=== PATIENT | male | born 1980 | race Caucasian/White ===

== ENCOUNTER 2024-09-02 03:37 | Emergency (ER) | payer MEDICAID ==
[~2024-09-02] VITALS: Ht 167.6 cm; Wt 70.0 kg
[2024-09-02 03:38] VITALS: BP 120/66; PULSE 75; RESP 20; O2SAT 100
--- NOTE | 2024-09-02 03:42 | Physician Documentation ---
History of Present Illness ~ Stated Complaint: ALOC Time Seen by MD: 03:40 Primary Medical Doctor: none Exam Limitations: clinical condition, intoxication HPI 44-year-old male who is brought in by EMS with altered mental status and bizarre behavior. EMS reports that he came from the [place], with bizarre behavior. He did not really answer questions. They were unable to get vital signs. He was intermittently agitated and did swing his arms at the medic. Here in the ED, the patient is very difficult to evaluate. He does not answer most of my questions, and makes bizarre statements. He appears to be responding to internal stimuli or is intoxicated. Medication Reconciliation Allergies: Coded Allergies: codeine (Unverified Allergy, Unknown, 02/19/17) Scheduled Buspirone HCl (Buspirone HCl), 1 TAB PO Q12H, (Reported) Cyclobenzaprine HCl (Cyclobenzaprine HCl), 1 TAB PO HS, (Reported) Gabapentin (Neurontin), 900 MG PO BID, (Reported) Sertraline HCl (Sertraline HCl), 1 CAP PO DAILY, (Reported) Scheduled PRN Clonazepam (Klonopin), 1.5 MG PO Q12H PRN PRN for anxiety, (Reported) Past Medical History Past Medical History: No Pertinent History Past Surgical History: no surgical history Drug Use: none Lives with: Family Lives In: Home Review of Systems Unable to obtain complete ROS: altered mental status Physical Exam Physical Exam General: This is a thin young male, appears to have some psychomotor agitation and is making bizarre statements HEENT: Atraumatic, oropharynx appears dry Heart: Tachycardic, appears regular Lungs: normal work of breathing, normal phonation Extremities: Warm and well-perfused, moves all extremities, no obvious traumatic injuries Neuro: Alert, able to answer some questions, moves all extremities Psychiatric: Bizarre behavior, has psychomotor agitation, appears to be responding to internal stimuli, difficult to redirect Progress Results/Orders Results/Orders Orders - VINCE SANDOVAL MD Close Observation Level (09/02/24 06:53) Completed Orders - VINCE SANDOVAL MD Nicotine 14mg Patch-24hr (Habitrol Patch (09/02/24 06:25) Medications Received in ER Medications (Trade) Dose Ordered Sig/Moose Route PRN Reason Start Time Stop Time Status Last Admin Dose Admin (Zyprexa tablet) 10 mg ONCE PO 09/02/24 03:45 09/02/24 08:37 DC 09/02/24 03:49 10 MG (Benadryl capsule) 50 mg ONCE ONCE PO 09/02/24 03:45 09/02/24 03:46 DC 09/02/24 03:49 50 MG (Ativan tablet) 2 mg ONCE ONCE PO 09/02/24 03:45 09/02/24 03:46 DC 09/02/24 03:49 2 MG (Habitrol patch) 1 patch ONCE ONCE TD 09/02/24 06:25 09/02/24 06:26 DC 09/02/24 06:32 1 PATCH Vital Signs 09/02/24 09/02/24 09/02/24 03:38 04:43 07:06 Temp 98.2 98.2 Pulse 75 Resp 20 B/P (MAP) 120/66 Pulse Ox 100 Laboratory Tests Test 09/02/24 03:40 09/02/24 04:04 09/02/24 04:20 Glucometer 203 H SARS-CoV-2 Antigen (Rapid) Negative White Blood Count 10.9 Red Blood Count 4.93 Hemoglobin 14.7 Hematocrit 43.4 Mean Corpuscular Volume 87.9 Mean Corpuscular Hemoglobin 29.7 Mean Corpuscular Hemoglobin Concent 33.8 Red Cell Distribution Width 13.5 Platelet Count 301 Mean Platelet Volume 6.7 L Neutrophils (%) (Auto) 82.4 H Lymphocytes (%) (Auto) 8.6 L Monocytes (%) (Auto) 7.7 Eosinophils (%) (Auto) 1.0 Basophils (%) (Auto) 0.3 Neutrophils # (Auto) 9.0 H Lymphocytes # (Auto) 0.9 L Monocytes # (Auto) 0.8 Eosinophils # (Auto) 0.1 Basophils # (Auto) 0.0 CBC Comment Sodium Level 138 Potassium Level 4.4 Chloride Level 99 Carbon Dioxide Level 29.8 Anion Gap 9 Blood Urea Nitrogen 14 Creatinine 1.40 H Estimated GFR/1.73 m2 55 BUN/Creatinine Ratio 10.0 Glucose Level 143 H Calcium Level 9.6 Albumin 4.1 Thyroid Stimulating Hormone (TSH) 2.93 Chemistry Comments Ethyl Alcohol Level < 10 Medical Decision Making Differential Dx:Considerations: Include: dehydration, encephalopathy, hypoglycemia, drug overdose, ETOH intoxication, medication toxicity Additional Information The patient presents with bizarre behavior. Per his history and exam, this seems most likely either substance abuse or psychiatric illness. He has no evidence of trauma. He has no fever or other evidence of infection. I did offer him medications for his agitation and symptoms but he refused. Mental scr eening labs were obtained which were grossly unremarkable. Urine drug screen is pending. The patient was signed out at shift change, pending urinalysis, and mental health evaluation. I took over care of this patient from previous ED physician. The patient continued to be uncooperative and refused to provide a urine sample for medical clearance. He repeatedly tried to get up and leave. The patient finally became very agitated and verbally abusive. He started threatening to punch staff and stormed out of the emergency department before he could be stopped. Departure Disposition: 07 LEFT AWOL/ELOPED Impression: Primary Impression: Bizarre behavior Additional Impressions: Violent behavior Agitation Referrals: NO PRIMARY CARE PROVIDER (PCP) Signature Scribe Signature: na Attestation: SHERYL Gramajo MD September 02, 2024 03:42 VINCE SANDOVAL MD September 02, 2024 08:07
[2024-09-02] MEDS: olanzapine 10mg tablet PO SCH (03:49)
[2024-09-02] MEDS: LORazepam 1 MG tablet PO ONE (03:49)
[2024-09-02] MEDS: diphenhydrAMINE 25mg capsule PO ONE (03:49)
[2024-09-02 04:34] LABS: BASOPHILS % (AUTO) 0.3 % (0-1); EOSINOPHILS # (AUTO) 0.1 X10'3 (0-0.9); HEMATOCRIT 43.4 % (42.0-52.0); HEMOGLOBIN 14.7 g/dl (14.0-17.9); LYMPHOCYTES # (AUTO) 0.9 X10'3 (1.1-4.8); LYMPHOCYTES % (AUTO) 8.6 % (21-51); MEAN CORPUSCULAR HEMOGLOBIN 29.7 PG (27.0-31.0); MEAN CORPUSCULAR HGB CONC 33.8 g/dL (33.0-36.5); MEAN CORPUSCULAR VOLUME 87.9 FL (78-98); MEAN PLATELET VOLUME 6.7 FL (7.4-10.4); MONOCYTES # (AUTO) 0.8 X10'3 (0-0.9); MONOCYTES % (AUTO) 7.7 % (2-12); NEUTROPHILS % (AUTO) 82.4 % (42-75); PLATELET COUNT 301 X10'3 (140-440); RED BLOOD COUNT 4.93 X10'6 (4.70-6.10); RED CELL DISTRIBUTION WIDTH 13.5 % (11.5-14.5); WHITE BLOOD COUNT 10.9 X10'3 (4.5-11.0)
[2024-09-02 04:43] VITALS: TEMP 98.2
[2024-09-02 04:56] LABS: ALBUMIN 4.1 G/DL (3.4-5.0); ANION GAP 9 (8-16); BLOOD UREA NITROGEN 14 MG/DL (7-18); CALCIUM 9.6 MG/DL (8.5-10.1); CHLORIDE 99 MMOL/L (99-107); GLUCOSE 143 MG/DL (70-104); POTASSIUM 4.4 MMOL/L (3.5-5.1); SODIUM 138 MMOL/L (135-145); THYROID STIMULATING HORMONE 2.93 ulU/ml (0.34-4.50); TOTAL CARBON DIOXIDE 29.8 MMOL/L (24-32); eCRCL 60 ML/MIN; eGFR 55 ML/MIN
[2024-09-02 04:58] LABS: ETHANOL < 10 MG/DL (<10)
[2024-09-02] MEDS ORDERED: SERT200C PO (05:59)
[2024-09-02] MEDS ORDERED: GABA800T PO (05:59)
[2024-09-02] MEDS ORDERED: CYCL-394 PO (05:59)
[2024-09-02] MEDS ORDERED: BUSP15TA3 PO (05:59)
[2024-09-02] MEDS ORDERED: CLON1TAB2 PO (06:02)
[2024-09-02] MEDS: nicotine 14mg patch - 24hr TD ONE (06:32)
== END 2024-09-02 08:10 | disposition left against medical advice (07) ==
LOC: ER 03:38
DX: R46.2 Strange and inexplicable behavior (principal); R45.6 Violent behavior; R45.1 Restlessness and agitation; Z88.5 Allergy status to narcotic agent; Z20.822 Contact with and (suspected) exposure to COVID-19
CPT/HCPCS: 36415; 80048; 80320; 82948; 84443; 85025; 87811; 99284; Q0163

== ENCOUNTER 2024-09-05 06:36 | Emergency (ER) | payer MEDICAID ==
[~2024-09-05] VITALS: Ht 170.2 cm; Wt 69.1 kg
[~2024-09-05 06:36] MED LIST: BUSP15TA3 PO; CLON1TAB2 PO; CYCL-394 PO; GABA800T PO; SERT200C PO
[2024-09-05 06:41] VITALS: BP 116/64; PULSE 74; RESP 16; TEMP 97.3; O2SAT 100
--- NOTE | 2024-09-05 07:10 | Physician Documentation ---
History of Present Illness ~ Chief Complaint: Medical Clearance Stated Complaint: MED REQUEST Time Seen by MD: 07:05 Primary Medical Doctor: none HPI Patient presenting for alcohol withdrawal. He has purposely detoxing hoping to quit drinking. His last drink was several hours ago. He has appointment today at 1:00 a.m. for detox. He reports feeling shaky. No history of seizures or hallucinations Tetanus within 5 years?: No Medication Reconciliation Allergies: Coded Allergies: codeine (Unverified Allergy, Unknown, 02/19/17) Scheduled Buspirone HCl (Buspirone HCl), 1 TAB PO Q12H, (Reported) Cyclobenzaprine HCl (Cyclobenzaprine HCl), 1 TAB PO HS, (Reported) Gabapentin (Neurontin), 900 MG PO BID, (Reported) Sertraline HCl (Sertraline HCl), 1 CAP PO DAILY, (Reported) Scheduled PRN Clonazepam (Klonopin), 1.5 MG PO Q12H PRN PRN for anxiety, (Reported) Past Medical History Past Medical History: No Pertinent History Past Surgical History: no surgical history Drug Use: none Lives with: Family Lives In: Home Review of Systems Constitutional: Denies: fever Respiratory: Denies: cough, shortness of breath Cardiovascular: Denies: chest pain Gastrointestinal: Denies: abdominal pain Physical Exam Vital Signs: RN Vital Signs have been reviewed: Yes, Temperature: 97.3, Source: Temporal, Heart Rate: 74, Respiratory Rate: 16, BP: 116/64, Pulse Oximetry: 100, Weight: 69.100 Oxygen Flow Rate: 0 Physical Exam Well-appearing well-kempt no distress resting comfortably in bed Awake alert oriented Normal gait Breathing unlabored Progress Results/Orders Results/Orders Vital Signs 09/05/24 06:41 Temp 97.3 Pulse 74 Resp 16 B/P (MAP) 116/64 Pulse Ox 100 O2 Flow Rate 0 Medical Decision Making Differential Dx:Considerations: Include: Intoxication-Alcohol, Intoxication- Other drug, Personality disorder, Substance abuse disorder Departure Disposition: 01 HOME / SELF CARE / HOMELESS Impression: Primary Impression: Alcohol use disorder Additional Instructions: Please go to your detox appointment. Return if you have any hallucinations or seizure Referrals: NO PRIMARY CARE PROVIDER (PCP) Signature Scribe Signature: na Attestation: SUE Garza MD September 05, 2024 07:10
[2024-09-05] MEDS: chlordiazePOXIDE 25mg capsule PO ONE (07:21)
== END 2024-09-05 07:24 | disposition home or self-care (01) ==
LOC: ER 06:36
DX: F10.239 Alcohol dependence with withdrawal, unspecified (principal); Z88.5 Allergy status to narcotic agent; Z79.899 Other long term (current) drug therapy; Y90.9 Presence of alcohol in blood, level not specified
CPT/HCPCS: 99283

== ENCOUNTER 2024-12-13 04:44 | Emergency (ER) | payer MEDICAID ==
[~2024-12-13] VITALS: Ht 172.7 cm; Wt 52.5 kg
[2024-12-13 07:33] VITALS: BP 102/67; PULSE 50; RESP 18; O2SAT 100
--- NOTE | 2024-12-13 08:11 | Physician Documentation ---
History of Present Illness General Chief Complaint: Medical Clearance Stated Complaint: EVAL Time Seen by MD: 08:03 OK to notify your PCP?: No Primary Medical Doctor: NONE Source: patient, RN notes reviewed Mode of Arrival: POV Exam Limitations: no limitations History of Present Illness Initial Comments 44 year old male, with history of fentanyl, methamphetamine, and cocaine use, presents with requests for medical clearance for [facility]. He plans to visit their facility around 1000 today. He is also requesting prescriptions for nicotine patches and Suboxone, to bridge him. He does not have any medical complaints at this time. He denies any chest pain or shortness of breath. Medication Reconciliation Allergies: Coded Allergies: codeine (Unverified Allergy, Unknown, 12/13/24) Scheduled Buspirone HCl (Buspirone HCl), 1 TAB PO Q12H, (Reported) Cyclobenzaprine HCl (Cyclobenzaprine HCl), 1 TAB PO HS, (Reported) Gabapentin (Neurontin), 900 MG PO BID, (Reported) Sertraline HCl (Sertraline HCl), 1 CAP PO DAILY, (Reported) Scheduled PRN Clonazepam (Klonopin), 1.5 MG PO Q12H PRN PRN for anxiety, (Reported) Past Medical History Past Medical History: No Pertinent History Past Surgical History: no surgical history Drug Use: methamphetamine, cocaine, heroin Lives with: Family Lives In: Home Review of Systems All Other Systems at this time: Reviewed and Negative ROS As stated above in the HPI, otherwise all systems are reviewed and negative. Physical Exam Physical Exam Vital Signs: RN Vital Signs have been reviewed: Yes, Temperature: 96.6, Source: Temporal, Heart Rate: 50, Respiratory Rate: 18, BP: 102/67, Pulse Oximetry: 100, Weight: 52.520 Oxygen Flow Rate: 0 Pulse Oximetry Reflects: adequate oxygenation Physical Exam VITALS: Reviewed and as above. GENERAL: Alert, no apparent distress. HEENT: Normocephalic, atraumatic, PERRL, EOMI, dry mucosa RESPIRATORY: Lungs clear, normal breath sounds, no respiratory distress. CHEST: No accessory muscle use, no retractions CV: Regular rate, rhythm, no edema, no murmur, No: JVD MUSCULOSKELETAL No deformities, no edema SKIN: Warm and dry, no rash NEURO: Oriented x4, No motor or sensory deficit PSYCH: Normal mood and affect, no agitation Progress Results/Orders Results/Orders Vital Signs 12/13/24 12/13/24 04:48 07:33 Temp 96.6 96.6 Pulse 98 50 Resp 15 18 B/P (MAP) 156/96 102/67 (79) Pulse Ox 98 100 O2 Flow Rate 0 Medical Decision Making Additional info obtained from: old records Departure Time of Disposition: 08:14 Disposition: 01 HOME / SELF CARE / HOMELESS Impression: Primary Impression: General medical exam Additional Impression: Medication refill Condition: Stable Discharge Instructions: Medical Screening Exam Additional Instructions: Patient has a medically clear for detox/rehab any facility, including [facility]. Take medications as prescribed. Return to the ER for any other concerns. Education Educated: Patient Educated regarding: diagnosis, treatment, need for follow up Signature Scribe Signature: Scribed for Karol Lott MD by Cesario Booker . 12/13/24 08:14 KAROL LOTT MD Dec 13, 2024 08:11 CESARIO SMITH Dec 13, 2024 08:15
[2024-12-13] MEDS ORDERED: NICO-687 TOP (08:14)
[2024-12-13] MEDS ORDERED: BUPR1FIL3 SL (08:14)
[2024-12-13] MEDS: buprenorphine/naloxone 8MG-2MG SUBlingual film SL STA (08:29)
[2024-12-13] MEDS: nicotine 21mg patch - 24 hr TD ONE (08:31)
[2024-12-13 08:32] VITALS: TEMP 96.6
== END 2024-12-13 08:47 | disposition home or self-care (01) ==
LOC: ER 04:45
DX: Z00.00 Encounter for general adult medical examination without abnormal findings (principal); Z76.0 Encounter for issue of repeat prescription; Z88.5 Allergy status to narcotic agent; Z79.899 Other long term (current) drug therapy; F15.90 Other stimulant use, unspecified, uncomplicated; F14.90 Cocaine use, unspecified, uncomplicated; F11.90 Opioid use, unspecified, uncomplicated
CPT/HCPCS: 99283

== ENCOUNTER 2024-12-15 12:03 | Emergency (ER) | payer MEDICAID ==
[~2024-12-15] VITALS: Ht 167.6 cm; Wt 96.2 kg
[~2024-12-15 12:03] MED LIST changes: +BUPR1FIL3 SL; +NICO-687 TOP
[2024-12-15 12:09] VITALS: BP 123/74; PULSE 65; RESP 18; O2SAT 99
--- NOTE | 2024-12-15 12:16 | Physician Documentation ---
HPI ~ General Chief Complaint: Medication Request Stated Complaint: MED REQUEST Time Seen by MD: 12:12 Primary Medical Doctor: NONE History of Present Illness HPI Comments Patient presents to the ED requesting bridging medication for ongoing opioid recovery. States he is unable to fruit or nut picker his Suboxone due to his pharmacy being closed. He is requesting a single dose while in the ED reports taking 8 mg twice daily Without Medications Since: Dec 15, 2024 Medication Reconciliation Allergies: Coded Allergies: codeine (Unverified Allergy, Unknown, 12/13/24) Scheduled Buprenorphine Hcl/Naloxone Hcl (Suboxone 8 Mg-2 Mg Sl Film), 1 STRIP SL DAILY Buspirone HCl (Buspirone HCl), 1 TAB PO Q12H, (Reported) Cyclobenzaprine HCl (Cyclobenzaprine HCl), 1 TAB PO HS, (Reported) Gabapentin (Neurontin), 900 MG PO BID, (Reported) Nicotine 21 MG Patch* (Habitrol 21 MG Patch*), 1 PATCH TOP DAILY Sertraline HCl (Sertraline HCl), 1 CAP PO DAILY, (Reported) Scheduled PRN Clonazepam (Klonopin), 1.5 MG PO Q12H PRN PRN for anxiety, (Reported) Past Medical History Past Medical History: No Pertinent History Past Surgical History: no surgical history Drug Use: methamphetamine, cocaine, heroin Lives with: Family Lives In: Home Review of Systems All Other Systems at this time: Reviewed and Negative ROS As stated above in the HPI, otherwise all systems are reviewed and negative. Physical Exam Physical Exam Vital Signs: Temperature: 97.9, Source: Temporal, Heart Rate: 65, Respiratory Rate: 18, BP: 123/74, Pulse Oximetry: 99, Weight: 96.250 Oxygen Flow Rate: 0 Physical Exam General: Alert, no apparent distress. Respiratory: Lungs clear, no respiratory distress. Chest: No accessory muscle use. Cardiovascular: Regular rate and rhythm, no murmurs. Neurologic: Oriented x4. Psychiatric: Normal mood and affect. Skin: Normal color, warm and dry. No edema, no ecchymosis. Progress Results/Orders Results/Orders Completed Orders - CARLIN VIERA NP Buprenorphine/Naloxone Sl Film (Suboxone (12/15/24 12:15) Medications Received in ER Medications (Trade) Dose Ordered Sig/Moose Route PRN Reason Start Time Stop Time Status Last Admin Dose Admin (Suboxone 8MG-2MG SL film) 2 film NOW ONCE SL 12/15/24 12:15 12/15/24 12:16 DC 12/15/24 12:22 2 FILM Vital Signs 12/15/24 12/15/24 12:09 12:23 Temp 97.9 97.9 Pulse 65 Resp 18 B/P (MAP) 123/74 Pulse Ox 99 O2 Flow Rate 0 Medical Decision Making Findings Patient provided a single dose of Suboxone while in the ED. Differential Dx:Considerations: Include: Adverse circumstances, Economic, Psychosocial, Medical services unavail., Medication refill, Medication non- compliance, Other Departure Disposition: HOME / SELF CARE / HOMELESS Impression: Primary Impression: Pain Additional Impression: Medication refill Condition: Stable Discharge Instructions: Medicine Refill at the Emergency Department Referrals: NO PRIMARY CARE PROVIDER (PCP) Signature Scribe Signature: f Attestation: Scribed for Carlin Viera Director Fraud by Carlin Vergara NP . 12/15/24 18:02 CARLIN VIERA MANAGER REQUIREMENTS Dec 15, 2024 12:15
[2024-12-15] MEDS: buprenorphine/naloxone 8MG-2MG SUBlingual film SL ONE (12:22)
[2024-12-15 12:23] VITALS: TEMP 97.9
== END 2024-12-15 12:24 | disposition home or self-care (01) ==
LOC: ER 12:03
DX: R52 Pain, unspecified (principal); F11.90 Opioid use, unspecified, uncomplicated; F14.90 Cocaine use, unspecified, uncomplicated; F15.90 Other stimulant use, unspecified, uncomplicated; Z76.0 Encounter for issue of repeat prescription; Z88.5 Allergy status to narcotic agent; Z79.899 Other long term (current) drug therapy
CPT/HCPCS: 99283

== ENCOUNTER 2025-02-20 13:37 | Emergency (ER) | payer MEDICAID ==
[~2025-02-20] VITALS: Ht 170.2 cm; Wt 63.8 kg
[~2025-02-20 13:37] MED LIST changes: -BUPR1FIL3 SL; -NICO-687 TOP
[2025-02-20 13:48] VITALS: TEMP 98
--- NOTE | 2025-02-20 15:20 | Physician Documentation ---
HPI ~ General Chief Complaint: Medication Request Stated Complaint: MED REQUEST Time Seen by MD: 14:54 Primary Medical Doctor: NONE Medication Reconciliation Allergies: Coded Allergies: No Known Allergies (Unverified , 02/20/25) Scheduled Buspirone HCl (Buspirone HCl), 1 TAB PO Q12H, (Reported) Cyclobenzaprine HCl (Cyclobenzaprine HCl), 1 TAB PO HS, (Reported) Gabapentin (Neurontin), 900 MG PO BID, (Reported) Sertraline HCl (Sertraline HCl), 1 CAP PO DAILY, (Reported) Scheduled PRN Clonazepam (Klonopin), 1.5 MG PO Q12H PRN PRN for anxiety, (Reported) Past Medical History Past Medical History: No Pertinent History Past Surgical History: no surgical history Smoking Status: Current every day smoker Drug Use: methamphetamine, cocaine, heroin Lives with: Family Lives In: Home Review of Systems ROS As stated above in the HPI, otherwise all systems are reviewed and negative. Physical Exam Physical Exam Vital Signs: Temperature: 98.0, Source: Temporal, Heart Rate: 73, Respiratory Rate: 18, BP: 110/50, Pulse Oximetry: 97, Weight: 63.800 Oxygen Flow Rate: 0 Physical Exam VITALS: Reviewed and as above. GENERAL: Alert, no apparent distress. HEENT: Normocephalic, atraumatic, PERRL, EOMI, dry mucosa, no erythema RESPIRATORY: Lungs clear, normal breath sounds, no respiratory distress. CHEST: No accessory muscle use, no retractions CV: Regular rate, rhythm, no edema, no murmur, No: JVD GI: Soft, non-tender, bowels sounds present, no rebound, guarding, or rigidity BACK: No CVA tenderness, or swelling MUSCULOSKELETAL No deformities, no edema SKIN: Warm and dry, no rash NEURO: Oriented x4, No motor or sensory deficit PSYCH: Normal mood and affect, no agitation Progress Results/Orders Results/Orders Orders - CHRISTINE BATES ROTOR PILOT Buprenorphine/Naloxone Sl Film (Suboxone (02/20/25 15:10) Vital Signs 02/20/25 13:48 Temp 98.0 Pulse 73 Resp 18 B/P (MAP) 110/50 Pulse Ox 97 O2 Flow Rate 0 Medical Decision Making Additional information obtaine: other Findings 44-year-old male with a history of opioid use disorder (OUD) presented to the emergency department requesting Suboxone (buprenorphine/naloxone) administration. Patient reports he is normally maintained on Suboxone, but is out of medication today and will have his prescription refilled by his primary care provider at [facility] tomorrow. He denies withdrawal symptoms, adverse effects, or other acute concerns. Assessment: Patient is clinically stable, without signs or symptoms of opioid withdrawal or intoxication. He is familiar with Suboxone therapy and has a clear plan for ongoing outpatient management. No acute medical or psychiatric issues shy ntified. Medical Decision Making: Given the patient's established OUD diagnosis and ongoing Suboxone maintenance, a single 8 mg dose of Suboxone was administered in the ED to bridge the gap until outpatient prescription is refilled. This approach is supported by current guidelines, which endorse ED administration of buprenorphine for patients with OUD to prevent withdrawal and facilitate continuity of care.[1-6] The dose is within recommended parameters for maintenance therapy and is considered safe in the absence of contraindications. No evidence of medication toxicity or adverse effects observed. Patient was counseled on safe use, medication adherence, and the importance of follow-up with his primary care provider. He was provided with return precaution s and information on local resources for OUD management. No further ED intervention required. Disposition: Patient discharged in stable condition after Suboxone administration. He will follow up with his primary care provider at [facility] tomorrow for prescription refill and ongoing care. No acute medical needs at time of discharge. Differential Dx:Considerations: Include: Adverse circumstances, Economic, Psychosocial, Medical services unavail., Medication refill, Medication non-comp liance, Other Departure Disposition: HOME / SELF CARE / HOMELESS Impression: Primary Impression: General medical exam Additional Impression: Medication administered Condition: Stable Discharge Instructions: Medicine Refill at the Emergency Department Additional Instructions: You received a dose of Suboxone (buprenorphine/naloxone) in the emergency department today. This medicine helps treat opioid use disorder and prevents withdrawal symptoms until you can get your regular prescription refilled tomorrow. What to expect: You should not experience withdrawal symptoms or cravings before your next dose. If you feel sick, have trouble breathing, or notice any unusual symptoms, get medical help right away. Medication safety: Take Suboxone exactly as prescribed by your doctor. Do not take extra doses or mix with other opioids, sedatives, or alcohol, as this can be dangerous. Keep Suboxone out of reach of children and others. Overdose prevention: Opioid medicines can cause breathing problems. It is important to have naloxone (Narcan) available in case of overdose. Ask your doctor or pharmacist about getting naloxone for you and your household. Follow-up: You should see your primary care provider at [facility] tomorrow to refill your Suboxone prescription and continue your treatment plan. Medication for opioid use disorder works best when combined with counseling and support. Ask your provider about resources for addiction treatment and recovery. When to get help: Call 911 or go to the nearest emergency department if you have trouble breathing, severe drowsiness, or cannot be woken up. If you run out of medication or miss your appointment, contact your provider or return to the emergency department for help. Additional resources: If you have questions about your medicine or treatment, talk to your doctor or pharmacist. Support groups and counseling can help you stay on track with recovery. Return precautions: Return to the emergency department if you have severe withdrawal symptoms, cannot access your medication, or have any other urgent concerns. Remember: Taking Suboxone as directed and following up with your provider is the best way to stay safe and healthy while treating opioid use disorder. Referrals: NO PRIMARY CARE PROVIDER (PCP) Education Educated: Patient Educated regarding: diagnosis, treatment, need for follow up Signature Scribe Signature: A Attestation: Scribed for Christine Bates by JUDAH Pfeiffer . 02/20/25 15:19 CHRISTINE BATES Feb 20, 2025 15:20
[2025-02-20] MEDS: buprenorphine/naloxone 8MG-2MG SUBlingual film SL SCH (15:30)
[2025-02-20 15:36] VITALS: BP 121/69; PULSE 73; RESP 16; O2SAT 96
[2025-02-21] MEDS ORDERED: GABA300C PO (14:06)
== END 2025-02-20 15:37 | disposition home or self-care (01) ==
LOC: ER 13:37
DX: Z00.00 Encounter for general adult medical examination without abnormal findings (principal); F17.200 Nicotine dependence, unspecified, uncomplicated; F15.90 Other stimulant use, unspecified, uncomplicated; F11.90 Opioid use, unspecified, uncomplicated; F14.90 Cocaine use, unspecified, uncomplicated
CPT/HCPCS: 99283

== ENCOUNTER 2025-02-21 11:28 | Emergency (ER) | payer MEDICAID ==
[~2025-02-21] VITALS: Ht 170.2 cm; Wt 63.7 kg
[2025-02-21 11:38] VITALS: TEMP 98.6
[2025-02-21 11:43] VITALS: BP 97/64; PULSE 88; RESP 16; O2SAT 98
[2025-02-21] MEDS ORDERED: GABA300C PO (14:06)
--- NOTE | 2025-02-21 14:07 | Physician Documentation ---
History of Present Illness ~ Chief Complaint: Medical Clearance Stated Complaint: MED CLEARANCE Time Seen by MD: 13:47 OK to notify your PCP?: Yes Primary Medical Doctor: NONE Source: patient Mode of Arrival: POV Exam Limitations: no limitations HPI 44-year-old male who is here for clearance for [facility]. Patient is going to [facility] due to alcoholism. His last drink of alcohol was this morning. No history of seizures. Denies hallucinations, delirium, tremors, nausea or vomiting. No SI or HI. He is requesting medication to help him with the detox process. Ingested: ETOH Presents for: medical clearance History Of: alcoholism, ETOH withdrawl, substance abuse Duration of Drinking: months Altered for: none Associated Symptoms: denies symptoms Severity of AMS: none Severity of Tremors: none Severity of Diphoresis: none Tetanus within 5 years?: Yes Medication Reconciliation Allergies: Coded Allergies: No Known Allergies (Unverified , 02/21/25) Scheduled Buspirone HCl (Buspirone HCl), 1 TAB PO Q12H, (Reported) Cyclobenzaprine HCl (Cyclobenzaprine HCl), 1 TAB PO HS, (Reported) Gabapentin (Neurontin), 900 MG PO BID, (Reported) Sertraline HCl (Sertraline HCl), 1 CAP PO DAILY, (Reported) Scheduled PRN Clonazepam (Klonopin), 1.5 MG PO Q12H PRN PRN for anxiety, (Reported) Past Medical History Past Medical History: No Pertinent History Past Surgical History: no surgical history Drug Use: methamphetamine, cocaine, heroin Lives with: Family Lives In: Home Review of Systems All Other Systems at this time: Reviewed and Negative Physical Exam Vital Signs: Temperature: 98.6, Source: Temporal, Heart Rate: 88, Respiratory Rate: 16, BP: 97/64, Pulse Oximetry: 98, Weight: 63.700 Oxygen Flow Rate: 0 Physical Exam General Appearance: WD/WN. SLEEPING UPON WALKING INTO EXAM ROOM. EASILY AROUSABLE. IN NAD. HEENT: NCAT, PERRL, EOMI. Neck: Supple, trachea midline. Cardiovascular: RRR. No m/r/g. Lungs: CTAB. Breathing unlabored Extremities: Normal inspection. No edema. Skin: Warm/dry, normal color Neurological: Alert and oriented x4, normal gait. NOT TREMULOUS. Psychiatric: Affect congruent with mood. Progress Results/Orders Results/Orders Vital Signs 02/21/25 02/21/25 11:38 11:43 Temp 98.6 Pulse 88 88 Resp 16 16 B/P (MAP) 92/48 97/64 (75) Pulse Ox 95 98 O2 Flow Rate 0 0 Medical Decision Making Additional information obtaine: N/A Findings N/A Differential Dx:Considerations: Include: Intoxication-Alcohol, Intoxication- Other drug, Personality disorder, Substance abuse disorder, Acute delirium, Closed head injury, Cervical spine injury, Skull fracture, Fracture(s), Abrasion, Contusion, Foreign body, Hematoma, Laceration, Alcohol withdrawl syndrom, Encephalopathy, Hepatitis, Medically stable, Other Departure Time of Disposition: 14:05 Disposition: 01 HOME / SELF CARE / HOMELESS Impression: Primary Impression: Alcohol use disorder Condition: Stable Discharge Instructions: Medical Screening Exam Additional Instructions: YOU ARE MEDICALLY CLEARED FOR [facility] Referrals: NO PRIMARY CARE PROVIDER (PCP) Prescriptions Gabapentin (Neurontin) 300 Mg Capsule 1 CAP PO Q8H for 9 Days, #18 CAP 0 Refills DISREGARD ABOVE INSTRUCTIONS AND FOLLOW THESE INSTURCTIONS: 1 PO TID X 3DAYS, 1PO BID X 3DAYS, 1PO QD X 3DAYS Prov: JONAH COX 02/21/25 Education Educated: Patient Educated regarding: diagnosis, treatment, need for follow up Signature Scribe Signature: X Attestation: JONAH MURGUIA Feb 21, 2025 14:07
== END 2025-02-21 14:28 | disposition home or self-care (01) ==
LOC: ER 11:31
DX: F10.10 Alcohol abuse, uncomplicated (principal); F15.90 Other stimulant use, unspecified, uncomplicated; F14.90 Cocaine use, unspecified, uncomplicated; Z88.8 Allergy status to other drugs, medicaments and biological substances; Y90.9 Presence of alcohol in blood, level not specified
CPT/HCPCS: 99283

== ENCOUNTER 2025-03-02 01:19 | Emergency (ER) | payer MEDICAID ==
[~2025-03-02] VITALS: Ht 167.6 cm; Wt 68.2 kg
[~2025-03-02 01:19] MED LIST changes: +GABA300C PO
[2025-03-02 01:21] VITALS: BP 142/75; PULSE 84; RESP 14; TEMP 98.8; O2SAT 99
--- NOTE | 2025-03-02 01:25 | Physician Documentation ---
History of Present Illness General Stated Complaint: MED CLEARANCE Time Seen by MD: 01:22 Primary Medical Doctor: NONE History of Present Illness Initial Comments This is a 44-year-old gentleman who is coming off alcohol and Suboxone is here for medical clearance for [facility]. He has a no somatic complaints. He states that he has been vomiting for the last couple of days, but it is no longer an issue. He denies any chest pain, difficulty breathing, vomiting, diarrhea, abdominal pain. Denies using methamphetamines. Medication Reconciliation Allergies: Coded Allergies: No Known Allergies (Unverified , 03/02/25) Scheduled Buspirone HCl (Buspirone HCl), 1 TAB PO Q12H, (Reported) Cyclobenzaprine HCl (Cyclobenzaprine HCl), 1 TAB PO HS, (Reported) Gabapentin (Neurontin), 900 MG PO BID, (Reported) Gabapentin (Neurontin), 1 CAP PO Q8H Sertraline HCl (Sertraline HCl), 1 CAP PO DAILY, (Reported) Scheduled PRN Clonazepam (Klonopin), 1.5 MG PO Q12H PRN PRN for anxiety, (Reported) Past Medical History Past Medical History: No Pertinent History Past Surgical History: no surgical history Drug Use: methamphetamine, cocaine, heroin Lives with: Family Lives In: Home Review of Systems ROS 10 point review of systems was performed and unless noted above in HPI is negative for acute process/complaint. Physical Exam Physical Exam Physical Exam GENERAL: Awake, alert, oriented, GCS 15, no apparent distress, non-toxic appearing, answers questions, follows commands appropriately. Examined in triage HEENT: Atraumatic, normocephalic, pupils equal, extraocular muscles intact, sclerae anicteric, mucus membranes moist, oropharynx is clear, no stridor. NECK: supple, full active range of motion, trachea midline, no thyromegaly, no lymphadenopathy, no JVD. CARDIOVASCULAR: regular rate/rhythm, no murmurs/gallops/rubs, Pulses are 2+ in all extremities and symmetric. Capillary refill less than 2 seconds. PULMONARY: Nonlabored, good air movement ,no respiratory distress, speaking in full sentences, clear to auscultation bilaterally, no wheezing, no ronchi, no rales, no accessory muscle use. GASTROINTESTINAL: Soft, non-tender, non-distended, normal active bowel sounds, no organomegaly, no pulsatile masses, no CVA tenderness. NEUROLOGIC: Lucid with normal mental status. Normal facial symmetry. Moves all extremities symmetrically and with purpose. No truncal ataxia. Speech is fluid without evidence of dysarthria or aphasia, no focal deficits appreciated. MUSCULOSKELETAL: There is full range of motion of all extremities. There is no joint pain or joint swelling or joint erythema. There is no muscle pain or tenderness or swelling. EXTREMITIES: warm, well-perfused, no cyanosis, no clubbing, no edema, no acute deformities. Skin: warm, dry, no rashes or lesions, no jaundice, no petechiae orpurpura. No ecchymosis. PSYCHIATRIC: Normal affect, normal insight, normal concentration. Focused exam: [] Progress Results/Orders Results/Orders Vital Signs 03/02/25 01:21 Temp 98.8 Pulse 84 Resp 14 B/P (MAP) 142/75 Pulse Ox 99 O2 Flow Rate 0 Medical Decision Making Additional information obtaine: old records Findings Facility Status: ED Holds, [facility] process The plan was discussed with the patient, who demonstrates clear understanding of the plan and is in agreement with the plan unless otherwise noted in the chart. All questions have been answered, all concerns were addressed unless otherwise documented. I was available throughout their ED stay for frequent reassessment and questions. Differential Diagnoses (considered and possible or likely): [Medical clearance for rehab, unlikely alcohol intoxication, unlikely alcohol withdrawal, unlikely opioid withdrawal] ??Differential Diagnoses (considered and unlikely, not requiring evaluation currently): [Denies any somatic complaints at this time] MDM Data Please see [facility] for the following: Independent Historians and external Records Review. Historian: [Patient] Independent Historians: ?[Record review] Medication Management: [Reviewed medication list] Social History and determinants: [Reviewed] Please see the body of the note for the following: Any independent interpretations of ECG, imaging studies. All vitals signs/haemodynamics, ordered tests were independently reviewed and interpreted by myself. Nursing triage complaint and vitals reviewed, additional nursing notes were reviewed as available and I agree unless otherwise noted or documented in contradiction in the chart Vital Signs: Independently reviewed Labs: Independently interpreted Imaging: Independently interpreted Old Medical Records: Independently reviewed, see [facility] for relevant summary and information Pulse Oximetry: [99%] interpreted as [normal on room air] by me Additionally notably showing: [Hemodynamically stable] Tests considered but not ordered include: [Hematologic workup and imaging has been considered but does not appear to be necessary given clinical nature of diagnosis] Social Determinants of Health Impact: Patient was evaluated in [facility], or [facility] [place] to healthcare due to below par ratio of patient to medical providers. [] Comorbid Conditions Impacting Present Evaluation and Care/Treatment: [Polysubstance abuse] Management Discussions with other Healthcare Providers: [None] Treatment and Disposition Medication Management (Given or considered): []. See EMR for details Consideration for Hospitalization/Escalation/Deescalation of Care: Admission for observation has been considered, [however the patient is able to tolerate p.o., their symptoms are controlled, they are able to rely on oral medications, and their chief complaint/diagnosis can be managed on outpatient basis.] ?ED Course:?[No clinical deterioration. Has no somatic complaints. Medically cleared for his rehab] ?Shared decision making:?[Patient is hemodynamically stable for discharge home with follow with their primary care provider. [ ] Specific and cautious return precautions provided and discussed with full understanding. Any incidental findings were also discussed and follow up recommendations given. [] All questions answered. Patient/family were able to verbalize back return precautions. Patient/family agree to plan. Copies of imaging and laboratory studies were provided.] Code status:?FULL Please see the full Electronic Medical Record for full details of nursing documentation, medications list, other records of complete past medical history and conditions, vital signs, laboratory studies, and any radiologic study interpretations by radiologists. Portions of this note were completed using Student Designed dictation software and as a result there may exist minor errors in spelling. I have reviewed elements of past family and social history and agree as included in note. Differential Diagnosis See body of main note for differential diagnosis Departure Disposition: 01 HOME / SELF CARE / HOMELESS Impression: Primary Impression: Encounter for medical screening examination Condition: Stable Additional Instructions: Your medically cleared to proceed to [place] Referrals: NO PRIMARY CARE PROVIDER (PCP) Education Educated: Patient Educated regarding: diagnosis, treatment, prognosis, need for follow up Signature Scribe Signature: No scribe Attestation: Date: Mar 02, 2025 Time: 01:24 This note accurately reflects clinical decisions, work performed by myself, Brian Loyola, BRIAN CAAL DO Mar 02, 2025 01:25
== END 2025-03-02 01:28 | disposition home or self-care (01) ==
LOC: ER 01:20
DX: Z00.00 Encounter for general adult medical examination without abnormal findings (principal); F15.90 Other stimulant use, unspecified, uncomplicated; F14.90 Cocaine use, unspecified, uncomplicated; F11.90 Opioid use, unspecified, uncomplicated; Z79.899 Other long term (current) drug therapy
CPT/HCPCS: 99282

== ENCOUNTER 2025-03-03 03:46 | Emergency (ER) | payer MEDICAID ==
[~2025-03-03] VITALS: Ht 167.6 cm; Wt 59.5 kg
--- NOTE | 2025-03-03 04:18 | Physician Documentation ---
History of Present Illness ~ Chief Complaint: Medical Clearance Stated Complaint: MED CLEARANCE Time Seen by MD: 04:15 Primary Medical Doctor: NONE HPI Patient presents to the emergency room for medical clearance to go to [facility]. No other complaints. Tetanus within 5 years?: No Medication Reconciliation Allergies: Coded Allergies: No Known Allergies (Unverified , 03/02/25) Scheduled Buspirone HCl (Buspirone HCl), 1 TAB PO Q12H, (Reported) Cyclobenzaprine HCl (Cyclobenzaprine HCl), 1 TAB PO HS, (Reported) Gabapentin (Neurontin), 900 MG PO BID, (Reported) Gabapentin (Neurontin), 1 CAP PO Q8H Sertraline HCl (Sertraline HCl), 1 CAP PO DAILY, (Reported) Scheduled PRN Clonazepam (Klonopin), 1.5 MG PO Q12H PRN PRN for anxiety, (Reported) Past Medical History Past Medical History: No Pertinent History Past Surgical History: no surgical history Drug Use: methamphetamine, cocaine, heroin Lives with: Family Lives In: Home Review of Systems ROS All review of systems negative except as per HPI Physical Exam Vital Signs: Temperature: 97.7, Heart Rate: 65, Respiratory Rate: 16, BP: 118/79, Pulse Oximetry: 100, Weight: 59.550 Oxygen Flow Rate: 0 Physical Exam General: Patient is awake, alert, oriented x4 in no acute distress Head: Normocephalic and atraumatic. Eyes: Conjunctival normal. EOMI. PERRL. ENT: Mucous membranes moist. Neck: Supple, trachea is midline. Chest: Clear to auscultation bilaterally without rales, rhonchi, or wheezes. There is no accessory muscle use or retractions. Cardiac: RRR without murmurs, gallops, or rubs. Abd: Soft, nondistended, nontender, with normoactive bowel sounds. No guarding, rebound, or rigidity. Progress Results/Orders Results/Orders Vital Signs 03/03/25 03:53 Temp 97.7 Pulse 65 Resp 16 B/P (MAP) 118/79 Pulse Ox 100 O2 Flow Rate 0 Medical Decision Making Additional information obtaine: old records Findings Patient presents to the emergency room for medical clearance to go to [facility]. Vital signs stable and he is cooperative and I will clear him Differential Dx:Considerations: Include: Intoxication-Alcohol, Intoxication- Other drug, Personality disorder, Substance abuse disorder, Acute delirium, Closed head injury, Cervical spine injury, Skull fracture, Fracture(s), Abrasion, Contusion, Foreign body, Hematoma, Laceration, Alcohol withdrawl syndrom, Encephalopathy, Hepatitis, Medically stable, Other Departure Disposition: 01 HOME / SELF CARE / HOMELESS Impression: Primary Impression: General medical exam Condition: Stable Discharge Instructions: Medical Screening Exam Additional Instructions: You are medically cleared for rehab Referrals: NO PRIMARY CARE PROVIDER (PCP) Signature Scribe Signature: No scribe Attestation: The note accurately reflects work and decisions made by me.Michael Briceño MD 03/03/25 04:18 MICHAEL BRICEÑO MD Mar 03, 2025 04:18
[2025-03-03 04:31] VITALS: BP 138/70; PULSE 78; RESP 16; TEMP 97.7; O2SAT 98
== END 2025-03-03 04:33 | disposition home or self-care (01) ==
LOC: ER 03:47
DX: Z00.00 Encounter for general adult medical examination without abnormal findings (principal); F15.90 Other stimulant use, unspecified, uncomplicated; F14.90 Cocaine use, unspecified, uncomplicated; F11.90 Opioid use, unspecified, uncomplicated; Z79.899 Other long term (current) drug therapy
CPT/HCPCS: 99282

== ENCOUNTER 2025-03-18 19:48 | Emergency (ER) | payer MEDICAID ==
[~2025-03-18] VITALS: Ht 167.6 cm; Wt 58.2 kg
--- NOTE | 2025-03-18 21:04 | Physician Documentation ---
History of Present Illness ~ Chief Complaint: Medical Clearance Stated Complaint: MED CLEARANCE Time Seen by MD: 20:46 OK to notify your PCP?: Yes Primary Medical Doctor: hemanth jean-baptiste Source: patient Mode of Arrival: POV Exam Limitations: no limitations HPI This is a 44-year-old male who comes in requesting medical clearance to [facility]. The patient states he is detoxing off drugs and alcohol. Last use was yesterday. He denies any acute symptoms. States it does not feel like he is withdrawing with the time. He has not no other past medical history. Tetanus within 5 years?: No Medication Reconciliation Allergies: Coded Allergies: No Known Allergies (Unverified , 03/18/25) Discontinued Medications Buspirone HCl (Buspirone HCl), 1 TAB PO Q12H, (Reported) Discontinued Reason: patient no longer taking Clonazepam (Klonopin), 1.5 MG PO Q12H PRN PRN for anxiety, (Reported) Discontinued Reason: patient no longer taking Cyclobenzaprine HCl (Cyclobenzaprine HCl), 1 TAB PO HS, (Reported) Discontinued Reason: patient no longer taking Gabapentin (Neurontin), 900 MG PO BID, (Reported) Discontinued Reason: patient no longer taking Gabapentin (Neurontin), 1 CAP PO Q8H Discontinued Reason: patient no longer taking Sertraline HCl (Sertraline HCl), 1 CAP PO DAILY, (Reported) Discontinued Reason: patient no longer taking Past Medical History Past Medical History: No Pertinent History Past Surgical History: no surgical history Drug Use: methamphetamine, cocaine, heroin Lives with: Family Lives In: Home Physical Exam Vital Signs: Temperature: 98.6, Source: Oral, Heart Rate: 81, Respiratory Rate: 18, BP: 120/81, Pulse Oximetry: 94, Weight: 58.230 Oxygen Flow Rate: 0 Pulse Oximetry Reflects: adequate oxygenation General Appearance: alert, WD/WN, no apparent distress Respiratory: no respiratory distress Chest: no accessory muscle use Cardiovascular: no edema Skin: warm/dry, normal color Neurologic: oriented x4, supervising producer II-XII nml as tested, memory intact, oriented to time Cerebellar Function: normal Coordination / Gait: normal gait Affect: appropriate Appearance/Memory/Insight: appropriate appearance, appropriate insight, neat, no memory impairment Thoughts/Hallucinations: normal thought pattern, no apparent hallucination Behavior/Eye contact/Speech: cooperative, good eye contact, normal speech Progress Results/Orders Results/Orders Vital Signs 03/18/25 19:57 Temp 98.6 Pulse 81 Resp 18 B/P (MAP) 120/81 Pulse Ox 94 O2 Flow Rate 0 Medical Decision Making Additional information obtaine: N/A Findings Clinically the patient is well-appearing in no apparent distress. He has not no complaints. He will be medically cleared for [facility]. Differential Dx:Considerations: Include: Intoxication-Alcohol, Intoxication- Other drug, Personality disorder, Substance abuse disorder, Acute delirium, C losed head injury, Cervical spine injury, Skull fracture, Fracture(s), Abrasion, Contusion, Foreign body, Hematoma, Laceration, Alcohol withdrawl syndrom, Encephalopathy, Hepatitis, Medically stable, Other Differential Diagnosis Polysubstance abuse. Request for medical clearance for a detox facility. Departure Disposition: HOME / SELF CARE / HOMELESS Impression: Primary Impression: Alcohol use disorder Additional Impression: Methamphetamine abuse Condition: Stable Discharge Instructions: Medical Screening Exam Additional Instructions: Mr. Haider Longoria has been medically evaluated and cleared for a detox program. Referrals: NO PRIMARY CARE PROVIDER (PCP) Signature Scribe Signature: No scribe Attestation: The note accurately reflects work and decisions made by me.Yanci MARTIN 03/18/25 21:03 YANCI BOOTHE Mar 18, 2025 21:04
[2025-03-18 21:11] VITALS: BP 118/80; PULSE 80; RESP 18; TEMP 98.6; O2SAT 99
== END 2025-03-18 21:12 | disposition home or self-care (01) ==
LOC: ER 19:49
DX: F10.20 Alcohol dependence, uncomplicated (principal); F15.10 Other stimulant abuse, uncomplicated; F14.90 Cocaine use, unspecified, uncomplicated; F11.90 Opioid use, unspecified, uncomplicated; Y90.9 Presence of alcohol in blood, level not specified
CPT/HCPCS: 99282

== ENCOUNTER 2025-03-20 06:08 | Emergency (ER) | payer MEDICAID | END 2025-03-20 06:44 | disposition left against medical advice (07) | LOC: ER 06:09 | DX: Z00.8 Encounter for other general examination (principal); Z53.21 Procedure and treatment not carried out due to patient leaving prior to being seen by health care provider ==

== ENCOUNTER 2025-03-24 12:10 | Emergency (ER) | payer MEDICAID ==
[~2025-03-24] VITALS: Ht 170.2 cm; Wt 56.7 kg
[2025-03-24 12:12] VITALS: TEMP 99.1
--- NOTE | 2025-03-24 13:28 | Physician Documentation ---
History of Present Illness ~ Chief Complaint: Medical Clearance Stated Complaint: MED CLEARANCE Time Seen by MD: 12:41 Primary Medical Doctor: hemanth Chew This is a 44-year-old male with a history of methamphetamine and alcohol abuse who presents requesting medical clearance for a treatment program, patient reports last meth use three days ago and last drank two days ago, patient reports no feelings of anxiety or shakiness. Patient reports that he had some shaking yesterday however this has resolved today. Patient reports feeling otherwise well and reports no other acute symptoms or concerns. Tetanus within 5 years?: No Medication Reconciliation Allergies: Coded Allergies: No Known Allergies (Unverified , 03/18/25) Discontinued Medications Buspirone HCl (Buspirone HCl), 1 TAB PO Q12H, (Reported) Discontinued Reason: patient no longer taking Clonazepam (Klonopin), 1.5 MG PO Q12H PRN PRN for anxiety, (Reported) Discontinued Reason: patient no longer taking Cyclobenzaprine HCl (Cyclobenzaprine HCl), 1 TAB PO HS, (Reported) Discontinued Reason: patient no longer taking Gabapentin (Neurontin), 900 MG PO BID, (Reported) Discontinued Reason: patient no longer taking Gabapentin (Neurontin), 1 CAP PO Q8H Discontinued Reason: patient no longer taking Sertraline HCl (Sertraline HCl), 1 CAP PO DAILY, (Reported) Discontinued Reason: patient no longer taking Past Medical History Past Medical History: No Pertinent History Past Surgical History: no surgical history Drug Use: methamphetamine, cocaine, heroin Lives with: Family Lives In: Home Review of Systems ROS As stated above in the HPI, otherwise all systems are reviewed and negative. Physical Exam Vital Signs: Temperature: 99.1, Source: Temporal, Heart Rate: 94, Respiratory Rate: 18, BP: 116/72, Pulse Oximetry: 98, Weight: 56.700 Oxygen Flow Rate: 0 Physical Exam VITALS: Reviewed and as above. GENERAL: Alert, nontoxic appearing, no apparent distress. HEENT: PERRLA, EOMI, oropharynx nonerythematous, no tonsillar swelling or exudates RESPIRATORY: No increased work of breathing, no respiratory distress, speaking in full clear sentences, clear lung sounds in all muhammad CHEST: Nontender to palpation CV: Regular rate and rhythm no murmur BACK: No CVA tenderness, no central spinal tenderness GI: Soft, nontender, no rebound, no guarding MUSCULOSKELETAL: Nontender to palpation, no obvious deformities SKIN: Warm and dry NEURO: GCS 15, alert oriented x4 PSYCH: Normal mood and affect no agitation, no anxious appearing, making no statements of SI or HI Progress Results/Orders Results/Orders Vital Signs 03/24/25 03/24/25 12:12 13:31 Temp 99.1 Pulse 94 87 Resp 18 16 B/P (MAP) 116/72 124/70 Pulse Ox 98 99 O2 Flow Rate 0 Medical Decision Making Additional information obtaine: N/A Findings This 44-year-old male presented to the emergency department for medical clearance to enter a treatment program for methamphetamine and alcohol abuse patient reported feeling otherwise well it was reassuring patient reported reported no feelings of anxiety and was displaying no clinical signs of alcohol withdrawal. Patient is otherwise well-appearing with a benign physical exam and is appropriate for outpatient follow up. Patient is cleared to enter his rehabilitation program. Patient provided careful return to care precautions follow up instructions, and home care instructions which he verbalized understanding of. Differential Dx:Considerations: Include: Intoxication-Alcohol, Intoxication- Other drug, Personality disorder, Substance abuse disorder, Acute delirium, Alcohol withdrawl syndrom Departure Time of Disposition: 13:26 Disposition: 01 HOME / SELF CARE / HOMELESS Impression: Primary Impression: Alcohol use disorder Additional Impressions: General medical exam Methamphetamine abuse Condition: Improved Discharge Instructions: Medical Screening Exam Additional Instructions: You are medically clear for your rehabilitation/treatment program. Please follow up with your primary care provider in the next few days. Please return to the emergency department for any new or worsening concerning symptoms. Referrals: NO PRIMARY CARE PROVIDER (PCP) Education Educated: Patient Educated regarding: diagnosis, treatment, prognosis, need for follow up Signature Scribe Signature: No scribe Attestation: The note accurately reflects work and decisions made by me.JUDAH Stewart 03/24/25 13:27 SONAL OLEARY Mar 24, 2025 13:28
[2025-03-24 13:31] VITALS: BP 124/70; PULSE 87; RESP 16; O2SAT 99
== END 2025-03-24 13:34 | disposition home or self-care (01) ==
LOC: ER 12:10
DX: Z00.00 Encounter for general adult medical examination without abnormal findings (principal); F15.10 Other stimulant abuse, uncomplicated; F10.10 Alcohol abuse, uncomplicated; F14.90 Cocaine use, unspecified, uncomplicated; F11.90 Opioid use, unspecified, uncomplicated; Y90.9 Presence of alcohol in blood, level not specified
CPT/HCPCS: 99282